=== PATIENT | female | born 1970 | race Caucasian/White ===

== ENCOUNTER → 2017-08-20 | Outpatient (CLI) | payer MEDICARE ==
--- NOTE | 2017-08-21 10:39 | MM ---
Reason for exam: screening (asymptomatic). Last mammogram was performed 1 year and 2 months ago. History: Family history of breast cancer in mother at age 76. Taking hormonal contraceptives for 5 years. Physical Findings: A clinical breast exam by your physician is recommended on an annual basis and results should be correlated with mammographic findings. MG 3D Screening Mammo W/Cad Bilateral CC and MLO view(s) were taken. Prior study comparison: July 04, 2016, bilateral MG screening mammo w CAD. June 30, 2015, bilateral MG screening mammo w CAD. June 21, 2014, bilateral MG screening mammo w CAD. The breast tissue is heterogeneously dense. This may lower the sensitivity of mammography. There is no discrete abnormality. ASSESSMENT: Benign, BI-RAD 2 RECOMMENDATION: Routine screening mammogram of both breasts in 1 year.
== END | disposition home or self-care (01) ==
LOC: RADMAMWWP 10:36
PROVIDERS: ATTEND Obstetrics & Gynecology
DX: Z12.31 Encounter for screening mammogram for malignant neoplasm of breast (principal)
CPT/HCPCS: 77063; 77067

== ENCOUNTER → 2018-01-13 | Outpatient (CLI) | payer MEDICARE ==
--- NOTE | 2018-01-14 08:06 | US ---
EXAMINATION TYPE: US carotid duplex BILAT DATE OF EXAM: 01/13/2018 COMPARISON: US 04/27/2016 CLINICAL HISTORY: H53.459 Loss of peripheral vision. EXAM MEASUREMENTS: RIGHT: Peak Systolic Velocity (PSV) cm/sec ----- Right CCA: 90.4 ----- Right ICA: 82.9 ----- Right ECA: 105.7 ICA/CCA ratio: 0.9 RIGHT: End Diastole cm/sec ----- Right CCA: 21.0 ----- Right ICA: 23.5 ----- Right ECA: 11.0 LEFT: Peak Systolic Velocity (PSV) cm/sec ----- Left CCA: 93.5 ----- Left ICA: 92.0 ----- Left ECA: 107.7 ICA/CCA ratio: 1.0 LEFT: End Diastole cm/sec ----- Left CCA: 20.0 ----- Left ICA: 39.1 ----- Left ECA: 17.0 VERTEBRALS (direction of flow): Right Vertebral: Antegrade Left Vertebral: Antegrade Rhythm: Normal Minimal amount of plaque visualized bilaterally. No elevated velocities. No significant stenosis. IMPRESSION: 1. No evidence of significant hemodynamic stenosis by carotid ultrasound. 2. Minimal plaque bilaterally. Criteria for Assigning % of Stenosis / Diameter reduction (Estimation based on the indirect measurements of the internal carotid artery velocities (ICA PSV). 1. Normal (no stenosis)=ICA PSV < 125 cm/s: ratio < 2.0: ICA EDV<40 cm/s. 2. Less than 50% stenosis=ICA PSV < 125 cm/s: ratio < 2.0: ICA EDV<40 cm/s. 3. 50 to 69% stenosis=ICA PSV of 125 to 230 cm/s: ration 2.0 ? 4.0: ICA EDV 40-100 cm/s. 4. Greater than 70% stenosis to near occlusion= ICA PSV > 230 cm/s: ratio > 4.0: ICA EDV > 100 cm/s. 5. Near occlusion= ICA PSV velocities may be low or undetectable: variable ratio and ICA EDV. 6. Total occlusion=unable to detect flow.
--- NOTE | 2018-01-15 11:24 | CT ---
EXAMINATION TYPE: CT brain wo/w con DATE OF EXAM: 01/13/2018 COMPARISON: NONE HISTORY: Loss of peripheral vision x 6-[address] DLP: 1949.1mGycm CONTRAST: CT scan of the head is performed without and with IV Contrast, patient injected with 100 mL of Isovue M300. Unenhanced followed by contrast enhanced CT of the brain is submitted for evaluation. The ventricles are midline. There is no evidence for intracranial hemorrhage or extra-axial collection. No mass e ffects are identified. Visualized bony calvarium is intact. Contrast is administered and no enhanci ng lesions are detected. No pathologic enhancement is identified. If symptoms persist consider MRI. Near-complete opacification left maxillary sinus. IMPRESSION: No acute intracranial process or enhancing lesion. If symptoms persist consider MRI.
== END | disposition home or self-care (01) ==
LOC: RADUSMAIN 15:39
PROVIDERS: ATTEND Psychiatry & Neurology Neurology
DX: H53.459 Other localized visual field defect, unspecified eye (principal)
CPT/HCPCS: 93880; 70470; Q9967

== ENCOUNTER → 2018-01-29 | Outpatient (CLI) | payer MEDICARE | END | disposition home or self-care (01) | LOC: LABWHC1 12:46 | PROVIDERS: ATTEND Ophthalmology Retina Specialist | DX: H20.9 Unspecified iridocyclitis (principal); Z53.9 Procedure and treatment not carried out, unspecified reason ==

== ENCOUNTER → 2018-10-24 | Outpatient (CLI) | payer MEDICARE ==
--- NOTE | 2018-10-24 15:40 | NM ---
EXAMINATION TYPE: NM DatScan Brain SPECT DATE OF EXAM: 10/24/2018 COMPARISON: 06/13/2017 HISTORY: Tremors and vision loss TECHNIQUE: 10 drops of Lugol's solution was administered 1 hour prior to injection as a thyroid bloc jj agent. After the administration of 4.35 mCi I-123 Ioflupane DaTscan. Images obtained 3 hours p ost injection. SPECT images of the brain were acquired with axial and coronal reconstructions. FINDINGS: The axial SPECT images demonstrate normal background activity. Accounting for head tilt, t here appears to be symmetric shaped comma-shaped appearance of the bilateral corpus striatum. IMPRESSION: No abnormality identified..
== END ==
LOC: RADNMMAIN 10:40
PROVIDERS: ATTEND Psychiatry & Neurology Neurology
DX: G25.0 Essential tremor (principal)
CPT/HCPCS: 78607; A9584

== ENCOUNTER 2019-01-25 23:38 | Observation (INO) | payer MEDICARE ==
[2019-01-26] MEDS ORDERED: IPRATROPIUM-ALBUTEROL 3 ML NEB INHALATION STA ×2 (00:27→02:25)
[2019-01-26] MEDS ORDERED: methylPREDNISolone SOD SUCCI 125 MG/2 ML VIAL IM ONE (00:27)
--- NOTE | 2019-01-26 00:32 | XR ---
EXAM: XR Chest, 2 Views CLINICAL HISTORY: ITS.REASON XR Reason: Pain TECHNIQUE: Frontal and lateral views of the chest. COMPARISON: No relevant prior studies available. FINDINGS: Lungs: Unremarkable. The lungs are clear. Pleural space: Unremarkable. No pneumothorax. Heart: Unremarkable. No cardiomegaly. Mediastinum: Unremarkable. Bones/joints: Unremarkable. Tubes, lines and devices: Presumed spinal cord and vagal stimulator devices. IMPRESSION: No acute findings.
[2019-01-26] MEDS ORDERED: ALBUTEROL NEBULIZED (CONC) 5 MG, SODIUM CHLORIDE 0.9% NEBULIZ 3 ML INHALATION STA ×2 (01:26)
--- NOTE | 2019-01-26 01:38 | ED ---
URI HPI - General Source: patient Mode of arrival: wheelchair Limitations: no limitations <Inga Ledbetter - Last Filed: 01/26/19 04:01> <Kerry Westbrook P - Last Filed: 02/02/19 03:27> - General Chief Complaint: Upper Respiratory Infection Stated Complaint: DORA Time Seen by Provider: 01/25/19 23:57 - History of Present Illness Initial Comments: 48-year-old female to history of asthma presenting today for chief complaint of cough congestion and sinus pressure for the past 2 days. Patient states she has had sinus pressure that increases with downward had movements. She denies any headache or neck stiffness. She states that she also has history of asthma has noticed wheezing and increasing short of breath and feels similar to which the previous asthma exacerbations. Patient states she did perform an albuterol treatment prior to her presentation in the emergency department. She states she did not have very much improvement. Patient denies any leg swelling chest pain hemoptysis. Patient denies any sputum production. Patient states she has had chills but has not recorded a fever at home. Remaining review of systems negative upon arrival patient appears well no signs of acute distress. Afebri le. (Inga Ledbetter) - Related Data Allergies Allergy/AdvReac Type Severity Reaction Status Date / Time Iodinated Contrast- Oral and Allergy Rash/Hives Verified 01/26/19 07:20 IV Dye peanut Allergy Unknown Verified 01/26/19 07:20 soy Allergy Rash/Hives Verified 01/26/19 07:20 Review of Systems ROS Other: All systems not noted in ROS Statement are negative. <Inga Ledbetter - Last Filed: 01/26/19 04:01> ROS Other: All systems not noted in ROS Statement are negative. <Kerry Westbrook - Last Filed: 02/02/19 03:27> ROS Statement: Those systems with pertinent positive or pertinent negative responses have been documented in the HPI. Past Medical History Additional Past Medical History / Comment(s): glaucoma, RP History of Any Multi-Drug Resistant Organisms: None Reported Past Surgical History: Orthopedic Surgery Additional Past Surgical History / Comment(s): neuro stimulator, knee replacement Past Psychological History: Depression Smoking Status: Never smoker Past Alcohol Use History: Rare Past Drug Use History: None Reported <Inga Ledbetter - Last Filed: 01/26/19 04:01> General Exam Limitations: no limitations <Inga Ledbetter Robert - Last Filed: 01/26/19 04:01> - General Exam Comments Initial Comments: General: The patient is awake and alert, in no distress, and does not appear acutely ill. Eye: +3 mm pupils are equal, round and reactive to light, extra-ocular movements are intact. No nystagmus. There is normal conjunctiva bilaterally. No signs of icterus. No photophobia Ears, nose, mouth and throat: There are moist mucous membranes and no oral lesions. Oropharynx was not erythematous there is no tonsillar enlargement exudates or lesions. Uvula midline. Tympanic membranes are not erythematous or is no effusions bulging or retraction. No tenderness to palpation of the mastoid. No anterior cervical lymphadenopathy. Rhinorrhea, clear and bilateral nares. No tripoding, no drooling. Neck: The neck is supple, there is no tenderness or JVD. No nuchal rigidity negative Brudzinski and Kernig Cardiovascular: There is a regular rate and rhythm. No murmur, rub or gallop is appreciated. Respiratory: Lungs sounds are diminished, there is expiratory wheeze. Respirations are non-labored, breath sounds are equal. No stridor, rales, or rhonchi. No retractions or abdominal breathing. Gastrointestinal: Soft, non-distended, non-tender abdomen without masses or organomegaly noted. There is no rebound or guarding present. Bowel sounds are unremarkable. Musculoskeletal: Normal ROM, no tenderness. Strength 5/5. Sensation intact. Radial pulses equal bilaterally 2+. Neurological: A&O x 3. CN II-XII intact, There are no obvious motor or sensory deficits. Coordination appears grossly intact. Speech appears normal, no muffling. Skin: Skin is warm and dry and no rashes or lesions are noted. No extremity edema Psychiatric: Cooperative (Inga Ledbetter) Course <EduardoInga crisostomo - Last Filed: 01/26/19 04:01> Vital Signs 01/25/19 01/26/19 01/26/19 23:41 00:09 00:35 Temperature 98.4 F Pulse Rate 96 95 Respiratory 20 20 Rate Blood Pressure 137/85 O2 Sat by Pulse 95 Oximetry 01/26/19 01/26/19 01/26/19 00:43 01:57 02:07 Temperature Pulse Rate 88 83 87 Respiratory Rate Blood Pressure O2 Sat by Pulse Oximetry 01/26/19 01/26/19 01/26/19 02:56 03:11 03:27 Temperature Pulse Rate 84 88 86 Respiratory 18 Rate Blood Pressure 130/92 O2 Sat by Pulse 98 Oximetry - Reevaluation(s) Reevaluation #1: Upon reevaluation patient states she had improvement after 1 DuoNeb treatment. Examination revealed continued to wheeze however improvement in air movement. 01/26/19 01:38 (Inga Ledbetter) Reevaluation #2: Patient was reevaluated after 2 additional nebulized treatments, minimal improvement, patient given 1g Magnesium. Will admit at this time for asthma exacerbation 01/26/19 04:01 (Inga Ledbetter) Medical Decision Making - Lab Data Result diagrams: 01/26/19 03:01 01/26/19 03:01 <Inga Ledbetter - Last Filed: 01/26/19 04:01> - Lab Data Result diagrams: 01/27/19 07:26 01/27/19 07:26 <Kerry Westbrook - Last Filed: 02/02/19 03:27> - Medical Decision Making 48-year-old female presenting today for chief complaint of congestion and cough sinus pressure and shortness of breath. Patient has history of asthma. Significant diminishment of lung sounds as well as extra wheeze. Patient is able to speak complete sentences was oxygenating at 95% on room air upon arrival. Patient was abdominal breathing, no retractions or significant tachypnea. Patient had 1 treatment prior to arrival in the ED. & a total of 3 treatments in the ER with minimal improvement. Given magnesium. Patient was evaluated by attending provider in the ER. Patient CXR WNL. Patient has tenderness to palpation of the maxillary sinuses. Given Augmentin. Patient will be admitted for breathing treatments, IV steroids. Total of 30 minutes of critical care was spent on patient. Dr. Westbrook is agreeable with admission. Patient is agreeable with admission. Patient transferred to floor in stable condition. (Inga Ledbetter) I was available for consultation in the emergency department. The history and physical exam were done by the midlevel provider. I was consulted for this patient's care. I reviewed the case with the midlevel provider and based on their presentation of the patient, I agree with the assessment, medical decision making and plan of care as documented. Chart was dictated using [employer] dictation software. Attempts were made to correct any dictation errors however some typographical errors may persist. (Kerry Westbrook) - Lab Data Lab Results 01/26/19 01/26/19 Range/Units 03:01 03:01 WBC 13.4 H (3.8-10.6) k/uL RBC 4.48 (3.80-5.40) m/uL Hgb 14.4 (11.4-16.0) gm/dL Hct 43.2 (34.0-46.0) % MCV 96.3 (80.0-100.0) fL MCH 32.1 (25.0-35.0) pg MCHC 33.3 (31.0-37.0) g/dL RDW 15.1 (11.5-15.5) % Plt Count 267 (150-450) k/uL Neutrophils % 94 % Lymphocytes % 3 % Monocytes % 2 % Eosinophils % 1 % Basophils % 0 % Neutrophils # 12.5 H (1.3-7.7) k/uL Lymphocytes # 0.4 L (1.0-4.8) k/uL Monocytes # 0.2 (0-1.0) k/uL Eosinophils # 0.2 (0-0.7) k/uL Basophils # 0.0 (0-0.2) k/uL Sodium 140 (137-145) mmol/L Potassium 4.3 (3.5-5.1) mmol/L Chloride 108 H (98-107) mmol/L Carbon Dioxide 21 L (22-30) mmol/L Anion Gap 11 mmol/L BUN 9 (7-17) mg/dL Creatinine 0.66 (0.52-1.04) mg/dL Est GFR (CKD-EPI)AfAm >90 (>60 ml/min/1.73 sqM) Est GFR (CKD-EPI)NonAf >90 (>60 ml/min/1.73 sqM) Glucose 145 H (74-99) mg/dL Calcium 9.7 (8.4-10.2) mg/dL Total Bilirubin 0.6 (0.2-1.3) mg/dL AST 18 (14-36) U/L ALT 10 (9-52) U/L Alkaline Phosphatase 71 (38-126) U/L Total Protein 8.0 (6.3-8.2) g/dL Albumin 4.8 (3.5-5.0) g/dL Critical Care Time Critical Care Time: Yes Total Critical Care Time: 30 <Kerry Westbrook - Last Filed: 02/02/19 03:27> Disposition Is patient prescribed a controlled substance at d/c from ED?: No Time of Disposition: 03:57 Decision to Admit Reason: Admit from EC Decision Date: 01/26/19 Decision Time: 03:57 <Inga Ledbetter - Last Filed: 01/26/19 04:01> <Kerry Westbrook - Last Filed: 02/02/19 03:27> Clinical Impression: Shortness of breath, Sinus pressure, Asthma exacerbation Disposition: ADMITTED IP TO THIS HOSP Condition: Serious
[2019-01-26] MEDS ORDERED: ALBUTEROL NEBULIZED 2.5 MG/3 ML INHALATION STA (01:46)
[2019-01-26] MEDS ORDERED: MAGNESIUM SULFATE-D5W PMX 1 GM in DEXTROSE/WATER 1 100ML.BAG IVPB ONE (02:26)
[2019-01-26 03:25] LABS: Basophils % (A) 0 %; Eosinophils # (A) 0.2 k/uL (0-0.7); Eosinophils % (A) 1 %; HCT 43.2 % (34.0-46.0); HGB 14.4 gm/dL (11.4-16.0); Lymphocytes # (A) 0.4 k/uL (1.0-4.8); Lymphocytes % (A) 3 %; MCH 32.1 pg (25.0-35.0); MCHC 33.3 g/dL (31.0-37.0); MCV 96.3 fL (80.0-100.0); Monocytes # (A) 0.2 k/uL (0-1.0); Monocytes % (A) 2 %; Neutrophils # (A) 12.5 k/uL (1.3-7.7); Neutrophils % (A) 94 %; Platelet Count 267 k/uL (150-450); RBC 4.48 m/uL (3.80-5.40); RDW 15.1 % (11.5-15.5); WBC 13.4 k/uL (3.8-10.6)
[2019-01-26] MEDS ORDERED: AMOXIC-POT CLAV 875-125MG 1 EACH TAB PO STA (03:32)
[2019-01-26] MEDS ORDERED: cefTRIAXone IN SWFI 1,000 MG/10 ML SYRINGE IVP STA (03:32)
[2019-01-26 03:39] LABS: ALT 10 U/L (9-52); AST 18 U/L (14-36); African American GFR (CKD) >90 (>60 ml/min/1.73 sqM); Albumin 4.8 g/dL (3.5-5.0); Alkaline Phosphatase 71 U/L (38-126); Anion Gap 11 mmol/L; Blood Urea Nitrogen 9 mg/dL (7-17); Calcium 9.7 mg/dL (8.4-10.2); Carbon Dioxide 21 mmol/L (22-30); Chloride 108 mmol/L (98-107); Glucose 145 mg/dL (74-99); Potassium 4.3 mmol/L (3.5-5.1); Sodium 140 mmol/L (137-145); Total Bilirubin 0.6 mg/dL (0.2-1.3)
[2019-01-26] MEDS ORDERED: IPRATROPIUM-ALBUTEROL 3 ML NEB INHALATION PRN (03:58)
[2019-01-26 05:10] VITALS: BMI 41.5
[2019-01-26] MEDS ORDERED: predniSONE 20 MG TAB PO SCH (09:00)
[2019-01-26] MEDS: IPRATROPIUM-ALBUTEROL 3 ML NEB INHALATION SCH ×4 (09:11→20:39)
[2019-01-26] MEDS: guaiFENesin 600 MG TABLET.ER PO SCH ×2 (09:54→21:20)
[2019-01-26] MEDS ORDERED: TEMAZEPAM 15 MG CAP PO PRN (14:59)
[2019-01-26] MEDS ORDERED: AZITHROMYCIN 500 MG in SODIUM CHLORIDE 0.9% 250 ML IVPB SCH (16:00)
[2019-01-26] MEDS: DULoxetine HCL 60 MG CAPSULE.DR PO SCH (17:16)
[2019-01-26] MEDS: clonazePAM 0.5 MG TAB PO SCH ×2 (17:16→21:20)
[2019-01-26] MEDS: ARIPiprazole 10 MG TAB PO SCH (17:16)
[2019-01-26] MEDS: methylPREDNISolone SOD SUCCI 125 MG/2 ML VIAL IV SCH (17:16)
[2019-01-26] MEDS: HEPARIN SODIUM,PORCINE 5,000 UNIT/ML 1 ML VIAL SQ SCH (17:17)
[2019-01-26 17:18] LABS: Glucose,Whole Blood 119 mg/dL (75-99)
--- NOTE | 2019-01-26 17:40 | HP ---
HISTORY AND PHYSICAL CHIEF COMPLAINT: Shortness of breath. HISTORY OF PRESENT ILLNESS: This 48-year-old woman with a past medical history of multiple medical problems, including asthma, fibromyalgia, history of sleep apnea, history of glaucoma, history of bulging and herniated discs, history of anxiety, depression, being followed by Dr. Melly Peña in the outpatient setting, was living in [place]. The patient has respiratory difficulties. because of increased shortness of breath and cough and sputum, patient came to [facility] for further evaluation and treatment. There is no history of any fever, rigor or chills. No history of headache, loss of consciousness, seizures at this time. PAST MEDICAL HISTORY: 1. Asthma. 2. Fibromyalgia. 3. Sleep apnea. 4. History of glaucoma. 5. History of bulging discs. HOME MEDICATIONS: 1. Spiriva 1 puff daily. 2. Topamax 100 mg p.o. daily. 3. Inderal XL 80 mg p.o. daily. 4. Methotrexate 25 mg . 5. Xalatan 0.005% one drop both eyes at bedtime. 6. Klonopin 0.5 mg t.i.d. 7. Cymbalta 60 mg daily. 8. Abilify 10 mg daily. ALLERGIES: 1. IODINATED CONTRAST. 2. PEANUT. 3. SOY. FAMILY HISTORY: No history of heart disease or strokes in the family. SOCIAL HISTORY: No history of smoking. No history of alcohol intake. REVIEW OF SYSTEMS: ENT: No diminished hearing. No diminished vision. CARDIOVASCULAR SYSTEM: As mentioned earlier. RESPIRATORY SYSTEM: As mentioned earlier. GI: No nausea, vomiting, diarrhea. : No dysuria or retention. NERVOUS SYSTEM: No numbness, weakness. ALLERGY/IMMUNOLOGY: No asthma, hayfever. MUSCULOSKELETAL: As mentioned earlier. HEMATOLOGY/ONCOLOGY: No history of anemia. ENDOCRINE: No history of diabetes, hypothyroidism. CONSTITUTIONAL: As mentioned earlier. DERMATOLOGY: Negative. RHEUMATOLOGY: Negative. PSYCHIATRY: As mentioned earlier. PHYSICAL EXAMINATION: Patient is alert and oriented x3. Pulse 79, blood pressure 123/83, respiration 15, temperature 98.5, pulse ox 97% on room air. HEENT: Conjunctivae normal. Oral mucosa moist. NECK: No jugular venous distention. No carotid bruit. No lymph node enlargement. CARDIOVASCULAR SYSTEM: S1, S2 muffled. RESPIRATORY SYSTEM: Breath sounds diminished at the bases. A few scattered rhonchi and crackles. Expiratory wheezing also present. ABDOMEN: Soft, non-tender. No mass palpable. LEGS: No edema. No swelling. NERVOUS SYSTEM: Higher functions as mentioned earlier. Moves all 4 limbs. No focal motor or sensory deficit. LYMPHATICS: No lymph node palpable in neck, axillae or groin. SKIN: No ulcer, rash, bleeding. JOINTS: No active deforming arthropathy. LABS: WBC 13.4, hemoglobin is 14.4. ASSESSMENT: 1. Bronchial asthma, acute exacerbation, with acute purulent tracheobronchitis. 2. Increased white count. 4. Asthma. 5. Fibromyalgia. 6. Sleep apnea. 7. Glaucoma. 8. History of degenerative joint disease. 9. History of anxiety, depression. 10.History of nerve stimulator. 11.History of knee replacements. RECOMMENDATIONS AND DISCUSSION: In this 48-year-old woman who presented with multiple medical issues, at this time we will monitor the patient closely, continue the current medications, continue with symptomatic treatment. I would also recommend intensive bronchodilators, steroids and empiric antibiotics. Pulmonary consultation. The patient also had some minimal wide- complex QRS complexes in the EKG. I would recommend EKG and a set of troponins as well. Prognosis is guarded because of multiple complex medical issues. Further recommendations to follow. A copy of this dictation is being forwarded to Dr. Peña, who is the primary physician. A recent SPECT MRI did not show any acute abnormality. MMODL / WAIN: [id number] / SORAYA
[2019-01-26] MEDS: INSULIN ASPART (NovoLOG) 100 UNIT/ML VIAL SQ SCH ×2 (17:44→21:20)
--- NOTE | 2019-01-26 18:05 | P.CNPUL ---
History of Present Illness Consult date: 01/26/19 Requesting physician: Leonela Soliz Reason for consult: asthma Chief complaint: shortness of breath cough wheezing History of present illness: this is a 48-year-old female with history of asthma since she was a child. Patient presented to the ER with 2 days history of sinuses congestion, went on to develop cough wheezing and shortness of breath for the last 24 hours. Patient denies any fever or chills, denies any hemoptysis, denies any chest pain. Apparently when she was seen in the ER her physical findings were quite significant, patient was not improving with bronchodilators, hence patient was admitted, placed on antibiotics, steroids, and I was asked to see her on consultation. During my evaluation, the patient was already feeling a bit better, less cough and less wheezing less shortness of breath, and she had no pressure or fullness over her sinuses during my examination. Patient is a nonsmoker, she is known to have history of asthma but usually her asthma is fairly well controlled uses only albuterol as needed. Patient is also known to have history of multiple ALLERGIES including ALLERGY to IV dye, peanuts, and soy. Review of Systems ONSTITUTIONAL: No fever, no malaise, no fatigue. HEENT: No recent visual problems or hearing problems. Denied any sore throat. known to have history of retinitis pigmentosa CARDIOVASCULAR: No orthopnea, PND, no palpitations, no syncope. PULMONARY: as noted in HPI, cough wheezing and shortness of breath and pressure and fullness over her sinuses. GASTROINTESTINAL: No diarrhea, no nausea, no vomiting, no abdominal pain. Normoactive bowel sounds. NEUROLOGICAL: No headaches, no weakness, no numbness. . HEMATOLOGICAL: Denies any bleeding or petechiae. GENITOURINARY: Denies any burning micturition, frequency, or urgency. r MUSCULOSKELETAL/RHEUMATOLOGICAL: Denies any joint pain, swelling, or any muscle pain. ENDOCRINE: Denies any polyuria or polydipsia. Past Medical History Past Medical History: Asthma, Fibromyalgia, Sleep Apnea/CPAP/BIPAP Additional Past Medical History / Comment(s): glaucoma, RP, bulging and herniated discs History of Any Multi-Drug Resistant Organisms: None Reported Past Surgical History: Orthopedic Surgery Additional Past Surgical History / Comment(s): neuro stimulator, knee replacement Past Psychological History: Anxiety, Depression Smoking Status: Never smoker Past Alcohol Use History: Rare Past Drug Use History: None Reported Medications and Allergies Home Medications Medication Instructions Recorded Confirmed Type ARIPiprazole [Abilify] 10 mg PO DAILY 01/26/19 01/26/19 History DULoxetine HCL [Cymbalta] 60 mg PO DAILY 01/26/19 01/26/19 History Latanoprost [Xalatan 0.005%] 1 drop BOTH EYES HS 01/26/19 01/26/19 History Methotrexate Sodium [Methotrexate] 25 mg PO TH 01/26/19 01/26/19 History Propranolol HCl [Inderal Xl] 80 mg PO DAILY 01/26/19 01/26/19 History Topiramate [Topamax] 100 mg PO DAILY 01/26/19 01/26/19 History Trospium Chloride 20 mg PO DAILY 01/26/19 01/26/19 History clonazePAM [KlonoPIN] 0.5 mg PO TID 01/26/19 01/26/19 History Allergies Allergy/AdvReac Type Severity Reaction Status Date / Time Iodinated Contrast- Oral and Allergy Rash/Hives Verified 01/26/19 07:20 IV Dye peanut Allergy Unknown Verified 01/26/19 07:20 soy Allergy Rash/Hives Verified 01/26/19 07:20 Physical Exam Vitals: Vital Signs Temp Pulse Pulse Resp BP BP Pulse Ox 01/26/19 16:12 76 01/26/19 15:59 74 01/26/19 15:17 15 01/26/19 15:00 98.9 F 74 15 104/68 97 01/26/19 12:20 78 01/26/19 12:10 79 01/26/19 09:22 85 01/26/19 09:12 79 97 01/26/19 07:00 98.5 F 86 15 123/83 97 01/26/19 04:59 98.2 F 78 16 122/80 98 01/26/19 03:27 86 18 130/92 98 01/26/19 03:11 88 01/26/19 02:56 84 01/26/19 02:07 87 01/26/19 01:57 83 01/26/19 00:43 88 01/26/19 00:35 95 01/26/19 00:09 20 01/25/19 23:41 98.4 F 96 20 137/85 95 Intake and Output 01/26/19 01/26/19 01/26/19 06:59 14:59 22:59 Other: # Voids 1 2 Weight 99.79 kg Physical Exam: Revealed 48-year-old female in no distress. Head: Atraumatic normocephalic. HEENT:[Neck is supple.] [No neck masses.] [No thyromegaly.] [No JVD.] Chest: [wheezing bilaterally more so on forced expiratory maneuver..] Cardiac Exam: [Normal S1 and S2, no S3 gallop, no murmur.] Abdomen: [Soft, nontender, no megaly, no rebound, no guarding, normal bowel sounds.] Extremities: [No clubbing, no edema, no cyanosis.] Neurological Exam: [No focal neurologic deficit.] skin: No rashes. Lymphatics: No lymphadenopathy. Psychiatric: Normal mood affect and mental status examination Results - Laboratory Findings CBC and BMP: 01/26/19 03:01 01/26/19 03:01 Abnormal lab findings: Abnormal Labs 01/26/19 01/26/19 01/26/19 03:01 03:01 17:17 WBC 13.4 H Neutrophils # 12.5 H Lymphocytes # 0.4 L Chloride 108 H Carbon Dioxide 21 L Glucose 145 H POC Glucose (mg/dL) 119 H - Diagnostic Findings Chest x-ray: image reviewed (no evidence of active disease) Assessment and Plan Assessment: impression: Acute exacerbation of bronchial asthma Acute maxillary sinusitis Acute upper respirator tract infection History of retinitis pigmentosa. Recommendation: Continue present treatment plan including present bronchodilators/DuoNeb, methylprednisolone, Rocephin,Pulmicort updrafts, patient will likely be much better in the next 24-48 hours, and consider discharge planning once the patient is significantly improved. We'll continue to follow. Time with Patient: Greater than 30
[2019-01-26] MEDS: BUDESONIDE 1 MG/2 ML NEBU INHALATION SCH (20:39)
[2019-01-26] MEDS: FORMOTEROL FUMARATE 20 MCG/2 ML NEBU INHALATION SCH (20:39)
[2019-01-26 20:49] LABS: Glucose,Whole Blood 180 mg/dL (75-99)
[2019-01-26] MEDS ORDERED: LATANOPROST 0.005% OPHTH DROPS 2.5 ML BTL BOTH EYES SCH (21:00)
[2019-01-27] MEDS: methylPREDNISolone SOD SUCCI 125 MG/2 ML VIAL IV SCH ×3 (00:01→15:09)
[2019-01-27 01:33] VITALS: RESP 15
[2019-01-27 06:52] LABS: Glucose,Whole Blood 126 mg/dL (75-99)
[2019-01-27] MEDS: INSULIN ASPART (NovoLOG) 100 UNIT/ML VIAL SQ SCH ×2 (07:22→14:31)
[2019-01-27 08:30] LABS: Basophils % (A) 0 %; Eosinophils % (A) 0 %; HCT 39.9 % (34.0-46.0); HGB 13.2 gm/dL (11.4-16.0); Lymphocytes # (A) 0.8 k/uL (1.0-4.8); Lymphocytes % (A) 6 %; MCH 32.1 pg (25.0-35.0); MCHC 33.1 g/dL (31.0-37.0); MCV 96.9 fL (80.0-100.0); Mean Platelet Volume 7.4; Monocytes # (A) 0.2 k/uL (0-1.0); Monocytes % (A) 2 %; Neutrophils # (A) 11.3 k/uL (1.3-7.7); Neutrophils % (A) 92 %; Platelet Count 293 k/uL (150-450); RBC 4.12 m/uL (3.80-5.40); RDW 15.2 % (11.5-15.5); WBC 12.3 k/uL (3.8-10.6)
[2019-01-27 08:32] LABS: African American GFR (CKD) >90 (>60 ml/min/1.73 sqM); Anion Gap 9 mmol/L; Blood Urea Nitrogen 14 mg/dL (7-17); Calcium 9.3 mg/dL (8.4-10.2); Carbon Dioxide 21 mmol/L (22-30); Chloride 112 mmol/L (98-107); Glucose 123 mg/dL (74-99); Potassium 4.2 mmol/L (3.5-5.1); Sodium 142 mmol/L (137-145)
[2019-01-27] MEDS: IPRATROPIUM-ALBUTEROL 3 ML NEB INHALATION SCH ×3 (08:50→15:33)
[2019-01-27] MEDS: FORMOTEROL FUMARATE 20 MCG/2 ML NEBU INHALATION SCH (08:50)
[2019-01-27] MEDS: BUDESONIDE 1 MG/2 ML NEBU INHALATION SCH (08:50)
[2019-01-27] MEDS ORDERED: PANTOPRAZOLE 40 MG/10 ML VIAL IVP SCH (09:00)
[2019-01-27] MEDS ORDERED: PROPRANOLOL LA 80 MG CAP.SA.24H PO SCH (09:00)
[2019-01-27] MEDS ORDERED: TOPIRAMATE 100 MG TAB PO SCH (09:00)
[2019-01-27] MEDS: ARIPiprazole 10 MG TAB PO SCH (09:45)
[2019-01-27] MEDS: clonazePAM 0.5 MG TAB PO SCH (09:45)
[2019-01-27] MEDS: guaiFENesin 600 MG TABLET.ER PO SCH (09:45)
[2019-01-27] MEDS: DULoxetine HCL 60 MG CAPSULE.DR PO SCH (09:45)
[2019-01-27] MEDS: HEPARIN SODIUM,PORCINE 5,000 UNIT/ML 1 ML VIAL SQ SCH (09:46)
[2019-01-27 11:23] LABS: Glucose,Whole Blood 130 mg/dL (75-99)
--- NOTE | 2019-01-27 13:26 | P.PN ---
Subjective Progress Note Date: 01/27/19 Principal diagnosis: Acute exacerbation of mild intermittent asthma this is a 48-year-old female with history of asthma since she was a child. Patient presented to the ER with 2 days history of sinuses congestion, went on to develop cough wheezing and shortness of breath for the last 24 hours. Patient denies any fever or chills, denies any hemoptysis, denies any chest pain. Apparently when she was seen in the ER her physical findings were quite significant, patient was not improving with bronchodilators, hence patient was admitted, placed on antibiotics, steroids, and I was asked to see her on consultation. During my evaluation, the patient was already feeling a bit b malik, less cough and less wheezing less shortness of breath, and she had no pressure or fullness over her sinuses during my examination. Patient is a nonsmoker, she is known to have history of asthma but usually her asthma is fairly well controlled uses only albuterol as needed. Patient is also known to have history of multiple ALLERGIES including ALLERGY to IV dye, peanuts, and soy. Reevaluated today on 01/27/2019, patient is feeling much better, hardly any wheezing, she does have some occasional cough. No fever no chills no hemoptysis no chest pain. Labs were reviewed including CBC and basic metabolic profile. Patient is doing great compared to how she felt yesterday. Hence I will r ecommend that the patient could be discharged home today on prednisone 30 mg tapered over 2 weeks, Ceftin 500 twice a day for 10 days, albuterol updrafts 4 times a day and when necessary, Symbicort 160/4.52 puffs twice a day, and Singulair 10 mg daily. Patient is to follow-up with me in one week post discharge. Objective - Vital Signs Vital signs: Vital Signs Temp 98.5 F 01/27/19 07:05 Pulse 71 01/27/19 12:54 Resp 15 01/27/19 07:05 BP 108/78 01/27/19 07:05 Pulse Ox 96 01/27/19 08:50 Intake & Output 01/26/19 01/27/19 01/27/19 18:59 06:59 18:59 Other: Voiding Method Toilet # Voids 2 2 - Exam Physical Exam: Revealed 48-year-old female in no distress. Head: Atraumatic normocephalic. HEENT:[Neck is supple.] [No neck masses.] [No thyromegaly.] [No JVD.] Chest: [Minimal wheezing on forced expiratory maneuver only. Cardiac Exam: [Normal S1 and S2, no S3 gallop, no murmur.] Abdomen: [Soft, nontender, no megaly, no rebound, no guarding, normal bowel sounds.] Extremities: [No clubbing, no edema, no cyanosis.] Neurological Exam: [No focal neurologic deficit.] skin: No rashes. Lymphatics: No lymphadenopathy. Psychiatric: Normal mood affect and mental status examination - Labs CBC & Chem 7: 01/27/19 07:26 01/27/19 07:26 Labs: Abnormal Lab Results - Last 24 Hours (Table) 01/26/19 01/26/19 01/27/19 Range/Units 17:17 20:45 06:50 WBC (3.8-10.6) k/uL Neutrophils # (1.3-7.7) k/uL Lymphocytes # (1.0-4.8) k/uL Chloride (98-107) mmol/L Carbon Dioxide (22-30) mmol/L Glucose (74-99) mg/dL POC Glucose (mg/dL) 119 H 180 H 126 H (75-99) mg/dL 01/27/19 01/27/19 01/27/19 Range/Units 07:26 07:26 11:21 WBC 12.3 H (3.8-10.6) k/uL Neutrophils # 11.3 H (1.3-7.7) k/uL Lymphocytes # 0.8 L (1.0-4.8) k/uL Chloride 112 H (98-107) mmol/L Carbon Dioxide 21 L (22-30) mmol/L Glucose 123 H (74-99) mg/dL POC Glucose (mg/dL) 130 H (75-99) mg/dL Assessment and Plan Assessment: impression: Acute exacerbation of bronchial asthma Acute maxillary sinusitis Acute upper respirator tract infection History of retinitis pigmentosa. Recommendation: Suggest discharging the patient home today on prednisone 30 mg tapered over the next 2 weeks, Symbicort 160/4.52 puffs twice a day, Ceftin 500 twice a day for 10 days, Singulair 10 mg daily at bedtime, patient will come back and see me in the office on outpatient basis hopefully in the next 7-10 days. Time with Patient: Less than 30
[2019-01-27] MEDS ORDERED: predniSONE 10 MG TAB PO SCH (13:30)
[2019-01-27 15:16] VITALS: BP 115/74; TEMP 98.2
[2019-01-27 15:35] VITALS: PULSE 72
--- NOTE | 2019-01-28 06:37 | DS ---
DISCHARGE SUMMARY FINAL DIAGNOSES: 1. Bronchial asthma acute exacerbation with acute purulent tracheobronchitis. 2. Increased WBC. 3. Asthma. 4. Fibromyalgia. 5. Sleep apnea. 6. Glaucoma. 7. History of degenerative joint disease. 8. History of anxiety, depression. 9. History of nerve stimulator. 10.History of knee replacement. DISCHARGE DISPOSITION: The patient will be discharged in stable condition with guarded prognosis. HISTORY OF PRESENT ILLNESS: This 48-year-old woman with a past medical history of multiple medical problems admitted with bronchial asthma, acute exacerbation, acute purulent tracheobronchitis. Patient treated with bronchodilators and IV steroids and antibiotics. Patient improved significantly. Dr. Boles saw the patient, recommended outpatient followup. On exam, vitals are stable. CARDIOVASCULAR: S1, S2 muffled. RESPIRATORY: A few scattered rhonchi and crackles. ABDOMEN: Soft. NERVOUS SYSTEM: No focal deficits. cleared the patient discharge. DISCHARGE ADVICE: 1. Diet is cardiac. 2. Activity limited until followup. 3. Follow up with Dr. Peña in 2 to 3 days. 4. Follow up with Pulmonary, Dr. Boles, as recommended. MEDICATIONS ARE: 1. Abilify 10 mg p.o. daily. 2. Cymbalta 60 mg p.o. daily. 3. Inderal XL 80 mg p.o. daily. 4. Klonopin 0.5 mg p.o. t.i.d. 5. Methotrexate 25 mg p.o. . 6. Topamax 100 mg p.o. daily. 7. Xalatan 1 drop both eyes q.h.s. 8. Ceftin 500 mg p.o. b.i.d. for 3 days. 9. Prednisone taper 40 mg daily for 3 days, 30 for 3 days, 20 for 3 days 10 for 3 days and stop. 10.Albuterol 2 puffs q.6. 11.Singulair 10 mg q.h.s. 12.Symbicort 160/4.5 two puffs b.i.d. Once again, the patient will be discharged in a stable condition with guarded prognosis. MMODL / IJN: [id number] / MTDD
[2019-01-28] MEDS ORDERED: PANTOPRAZOLE 40 MG TABLET PO SCH (07:30)
[2019-01-29] MEDS ORDERED: METHOTREXATE SODIUM 2.5 MG TAB PO SCH (09:00)
== END 2019-01-27 16:54 | disposition home or self-care (01) ==
LOC: EC 23:38 → 4SSUR 01-26 04:07
PROVIDERS: ADMIT Hospitalist; ATTEND Hospitalist
DX: J45.21 Mild intermittent asthma with (acute) exacerbation (principal); J20.9 Acute bronchitis, unspecified; J01.00 Acute maxillary sinusitis, unspecified; H40.9 Unspecified glaucoma; M19.90 Unspecified osteoarthritis, unspecified site; F32.9 Major depressive disorder, single episode, unspecified; F41.9 Anxiety disorder, unspecified; H35.52 Pigmentary retinal dystrophy; M79.7 Fibromyalgia; G47.30 Sleep apnea, unspecified; Z99.89 Dependence on other enabling machines and devices; Z79.899 Other long term (current) drug therapy; Z91.041 Radiographic dye allergy status; Z91.010 Allergy to peanuts; Z91.018 Allergy to other foods; Z87.39 Personal history of other diseases of the musculoskeletal system and connective tissue; Z96.659 Presence of unspecified artificial knee joint; Z96.9 Presence of functional implant, unspecified
CPT/HCPCS: 96376; 96365; 96372 ×3; 96375 ×3; 99285; 36415; 94640 ×4; 94760 ×2; 93005; 80053; 80048; 84484 ×2; 85025 ×2; 71046; G0378 ×2; J1644 ×2; J2930 ×2; J0696 ×2; J3475; J7512 ×2; C9113; 99284

== ENCOUNTER → 2019-01-30 | Outpatient (CLI) | payer MEDICARE ==
[2019-01-30 13:06] LABS: Basophils % (A) 0 %; Eosinophils # (A) 0.1 k/uL (0-0.7); Eosinophils % (A) 1 %; HCT 43.8 % (34.0-46.0); HGB 14.3 gm/dL (11.4-16.0); Lymphocytes # (A) 1.3 k/uL (1.0-4.8); Lymphocytes % (A) 14 %; MCH 31.3 pg (25.0-35.0); MCHC 32.6 g/dL (31.0-37.0); Mean Platelet Volume 6.9; Monocytes # (A) 0.1 k/uL (0-1.0); Monocytes % (A) 1 %; Neutrophils # (A) 7.8 k/uL (1.3-7.7); Neutrophils % (A) 84 %; Platelet Count 391 k/uL (150-450); RBC 4.56 m/uL (3.80-5.40); RDW 13.7 % (11.5-15.5); WBC 9.4 k/uL (3.8-10.6)
[2019-01-30 19:24] LABS: BUN/Creat Ratio 15.56 Ratio (12.00-20.00); Calcium 9.3 mg/dL (8.7-10.3); Potassium 4.1 mmol/L (3.5-5.5)
== END | disposition home or self-care (01) ==
LOC: LABWHC1 12:50
PROVIDERS: ATTEND Hospitalist
DX: J45.909 Unspecified asthma, uncomplicated (principal)
CPT/HCPCS: 36415; 80048; 85025

== ENCOUNTER → 2019-03-04 | Outpatient (CLI) | payer MEDICARE ==
--- NOTE | 2019-03-04 09:44 | CT ---
EXAMINATION TYPE: CT cervical spine wo con DATE OF EXAM: 03/04/2019 COMPARISON: None HISTORY: Cervicalgia CT DLP: 758.[address] of the cervical spine was performed with bone and soft tissue window settings submitted . Coronal and sagittal reconstruction is obtained. C2-3: Within normal limits C3-4: Mild degenerative disc space narrowing. Extensive streak artifact from neural transmitter resul ts in limited evaluation of this level. C4-5:Mild degenerative disc space narrowing. Extensive streak artifact from neural transmitter result s in limited evaluation of this level. 5-6: Moderate degenerative disc space narrowing. Ventral spondylosis. Mild posterior disc bulge witho ut herniation or central stenosis. No evidence for foraminal encroachment. C6-7: Moderate to severe degenerative disc space narrowing. Ventral spondylosis. Posterior disc bulge with mild effacement ventral thecal sac. No evidence for antral stenosis or foraminal encroachment. C7-T1: Within normal limits. IMPRESSION: 1. Degenerative disc space narrowing as discussed. 2. Neural transmitter is noted extending from the C2 level through C4 level resulting in extensive st reak artifact and exam limitation.
--- NOTE | 2019-03-04 13:20 | CT ---
EXAMINATION TYPE: CT lumbar spine wo con DATE OF EXAM: 03/04/2019 COMPARISON: None HISTORY: L-spine pain CT DLP: 1372.[address] of the lumbar spine was performed. Bone and soft tissue window settings are submitted as well as coronal and sagittal reconstructions. L1-L2: Normal disc space height. No disc herniation protrusion or central stenosis. No facet joint arthropathy. No evidence for foraminal encroachment. L2-L3: Normal disc space height. No disc herniation protrusion or central stenosis. No facet joint arthropathy. No evidence for foraminal encroachment. L3-L4: Normal disc space height. No disc herniation protrusion or central stenosis. No facet joint arthropathy. No evidence for foraminal encroachment. L4-L5: Mild degenerative disc place narrowing. Posterior disc bulge. No herniation or central stenos is. No foraminal encroachment. L5-S1: Normal disc space height. No disc herniation protrusion or central stenosis. No facet joint arthropathy. No evidence for foraminal encroachment. No paraspinal masses are identified. Lumbar segments are free if fracture. IMPRESSION: 1. Degenerative disc space narrowing and disc bulging at L4-5.
== END | disposition home or self-care (01) ==
LOC: RADCTMAIN 07:25
PROVIDERS: ATTEND Psychiatry & Neurology Neurology
DX: M99.73 Connective tissue and disc stenosis of intervertebral foramina of lumbar region (principal); M51.86 Other intervertebral disc disorders, lumbar region; M51.36 Other intervertebral disc degeneration, lumbar region; M99.71 Connective tissue and disc stenosis of intervertebral foramina of cervical region; M50.31 Other cervical disc degeneration, high cervical region; Z91.041 Radiographic dye allergy status; Z88.8 Allergy status to other drugs, medicaments and biological substances
CPT/HCPCS: 72125; 72131

== ENCOUNTER 2020-03-18 07:44 | Day surgery (SDC) | payer MEDICARE ==
[~2020-03-18 07:44] MED LIST: PREMYELOGRAM MEDICATION REVIEW 1 EACH MISC PO PRN
[2020-03-18] MEDS ORDERED: diazePAM 5 MG TAB PO STA (08:31)
[2020-03-18 08:53] VITALS: TEMP 98.7
[2020-03-18 09:40] VITALS: RESP 16
[2020-03-18] MEDS ORDERED: HYDROcodone/APAP 5-325MG 1 EACH TAB PO PRN (09:51)
--- NOTE | 2020-03-18 11:10 | CT ---
EXAMINATION TYPE: CT lumbar spine w con DATE OF EXAM: 03/18/2020 COMPARISON: CT lumbar spine March 04, 2019. MRI lumbar spine April 02, 2013. HISTORY: chronic back pain. CT DLP: 1358.2 mGycm Automated exposure control for dose reduction was used. CONTRAST: CT scan of the lumbar is performed after injection of intrathecal contrast, patient injected with 15 ml mL of Isovue M200. Enhanced CT of the lumbar spine was performed. Bone and soft tissue window settings are submitted as well as coronal and sagittal reconstructions. 5 lumbar type vertebra are redemonstrated. There is satisfactory alignment seen. Vertebral body heigh ts and disc space heights are maintained. No suspicious new posterior disc herniations are seen. Ther e is poor visualization of conus with poor separation of the ascending lumbosacral nerve fibers which are more clumped in appearance versus 2013 MRI. Axial images show mild facet degenerative changes bilaterally at L2-L3 and L3-L4 levels. Axial images at L4-L5 level show moderate facet degenerative changes bilaterally but spinal canal is preserved. Axial images at L5-S1 level show mild to moderate facet degenerative changes bilaterally. Neural foramina are patent bilaterally at all lumbar levels. There is anteverted uterus with central metallic IUD. Spinal canal is not effaced. Cholecystectomy cl ips are noted. Stimulator device in the left posterior soft tissue is noted. IMPRESSION: No obvious new significant disc herniation. Only suspicious finding is poor separation of the ascending lumbosacral nerve roots raising concern for underlying arachnoiditis. [facility] clinic [facility].
--- NOTE | 2020-03-18 11:28 | CT ---
EXAMINATION TYPE: CT cervical spine w con DATE OF EXAM: 03/18/2020 COMPARISON: CT cervical spine March 04, 2019. MRI cervical spine April 02, 2013. HISTORY: chronic pain CT DLP: 670.6 mGycm. Automated Exposure Control for Dose Reduction was Utilized. TECHNIQUE: CT scan of the cervical spine is obtained following intrathecal injection of contrast, ax ial images are obtained, sagittal and coronal reformatted images are also reviewed. 15 cc of Isovue 2 00 injected. FINDINGS: Successful opacification of the cervical spinal canal. Cervical spine is visualized in its entirety from C1 through upper thoracic levels, demonstrates stable alignment with normal cervical cu rvature centered at C5-C6 level. Prevertebral soft tissue appears within normal limits. The C1-C2 a rticulation is within normal limits on the coronal images. Vertebral body heights are maintained. Mod erate anterior spurring and mild to moderate disc space narrowing C5-C6 and C6-C7 levels. Redemonstra tion of spinal stimulator from mid C3 through mid C5 vertebra and the posterior spinal canal causing streak artifact limiting evaluation at these levels. Axial images at C2-C3 level are felt within normal limits. Axial images at C5-C6 level are within normal limits on axial image 48. Axial images at C6-C7 level show persistent broad-based disc protrusion effacing the anterior thecal sac. Bilateral neural foramina are patent. Axial images at C7-T1 level remain within normal limits. Stimulators in the right mid to lower cervical paraspinal muscles noted. IMPRESSION: Multilevel degenerative changes as detailed above. Suboptimal evaluating the C3-C4 level which had disc herniation on 2013 MRI due to artifact from spinal stimulator. Disc herniation C6-C7 level redemonstrated without obvious progression from 2013 MRI.
--- NOTE | 2020-03-18 11:30 | FL ---
EXAMINATION TYPE: FL myelogram 2 or more regions DATE OF EXAM: 03/18/2020 COMPARISON: NONE HISTORY: Chronic neck and back pain. Informed consent was obtained and all the patient's questions were answered. The L3-L4 level was loc alized under fluoroscopy. Standard sterile technique was utilized as well as appropriate local anest hesia 1% Lidocaine . Spinal needle was introduced into the thecal sac under fluoroscopic guidance an d 15 mL's of Isovue 200 was injected. The patient tolerated the procedure well and left the [facility] in stable condition. CT myelography is to follow. This report was dictated separately. 8 spot images saved during procedure. Total 3 minutes 13 seconds fluoroscopic time utilized. Images s how successful accessed and contrast injection. Incidental cholecystectomy clips and overlying stimul ator. IMPRESSION: Successful myelography lumbar spine for subsequent CT.
[2020-03-18 12:04] VITALS: BP 118/70; PULSE 71
== END 2020-03-18 13:35 | disposition home or self-care (01) ==
LOC: RADPROMAIN 07:44
PROVIDERS: ATTEND Neurological Surgery
DX: G89.29 Other chronic pain (principal); M50.123 Cervical disc disorder at C6-C7 level with radiculopathy; G54.4 Lumbosacral root disorders, not elsewhere classified; Z96.82 Presence of neurostimulator; Z90.49 Acquired absence of other specified parts of digestive tract
CPT/HCPCS: 62305; 72126; 72132; J2001; Q9966

== ENCOUNTER → 2020-07-19 | Outpatient (CLI) | payer MEDICARE ==
--- NOTE | 2020-07-19 16:37 | BD ---
EXAMINATION TYPE: Axial Bone Density DATE OF EXAM: 07/19/2020 COMPARISON: NONE CLINICAL HISTORY: Height: 5 FT 2 1/4 IN Weight: 210 FRAX RISK QUESTIONS: Alcohol (3 or more units per day): NO Family History (Parent hip fracture): YES Glucocorticoids (More than 3mos): NO (Ex: prednisone, prednisolone, methylprednisolone, dexamethasone, and hydrocortisone). History of Fracture in Adulthood: NO Secondary Osteoporosis: 1. Type 1 Diabetes: NO 2. Hyperthyroidism: NO 3. Menopause before 45: NO 4. Malnutrition: NO 5. Chronic liver disease: NO Rheumatoid Arthritis: NO Current Tobacco Use: NO RISK FACTORS HISTORY OF: Surgery to Spine/Hip(right/left)/Wrist (right/left): NEURO STIMULATER PLACED NEAR C SPINE AND LUMBAR SPINE MAR 2020 AND JUN 2020 FOR PAIN Family History of Osteoporosis: NO Active: SOMEWHAT Diet low in dairy products/other sources of calcium: NO Postmenopausal woman: ON CONTROL FOR TWO YEARS Lost more than 2 inches in height since high school: NO MEDICATIONS: Additional Medications: CONTROL, CYMBALTA,TOPOMAX, INDURAL, FOLIC ACID, ABILIFY, OXYBUTIN, CLON AZEPAM, VITAMIN , MONTELUKAST, METHOTREXATE, LATANOPROST, Additional History: EXAM MEASUREMENTS: Bone mineral densitometry was performed using the [employer] System. Bone mineral density as measured about the Lumbar spine is: ----- L1-L4(G/cm2): 1.221 T Score Values are as follows: ----- L2: 0.9 ----- L3: 0.8 ----- L4: 0.2 ----- L1-L4: 0.3 BASELINE Bone mineral density about the R hip (g/cm2): 1.112 Bone mineral density about the L hip (g/cm2): 1.094 T Score values are as follows: -----R Neck: 0.5 -----L Neck: 0.4 -----R Total: 1.3 -----L Total: 1.7 BASELINE IMPRESSION: Normal (Values between +1 and -1 indicate normal bone mass). Consider repeating this study in 5 year s or sooner if there is some new clinical indication. NOTE: T-SCORE=SD OF THE YOUNG ADULT MEAN.
--- NOTE | 2020-07-20 11:03 | MM ---
Reason for exam: screening (asymptomatic). Last mammogram was performed 2 years and 11 months ago. History: Family history of breast cancer in mother at age 76. Taking hormonal contraceptives for 5 years. Physical Findings: A clinical breast exam by your physician is recommended on an annual basis and results should be correlated with mammographic findings. MG 3D Screening Mammo W/Cad Bilateral CC and MLO view(s) were taken. Prior study comparison: August 20, 2017, bilateral MG 3d screening mammo w/cad. July 04, 2016, bilateral MG screening mammo w CAD. There are scattered fibroglandular densities. No significant changes when compared with prior studies. ASSESSMENT: Benign, BI-RAD 2 RECOMMENDATION: Routine screening mammogram of both breasts in 1 year.
== END | disposition home or self-care (01) ==
LOC: RADMAMWWP 08:01
PROVIDERS: ATTEND Obstetrics & Gynecology
DX: Z12.31 Encounter for screening mammogram for malignant neoplasm of breast (principal); M85.88 Other specified disorders of bone density and structure, other site; N95.1 Menopausal and female climacteric states
CPT/HCPCS: 77063; 77067; 77080

== ENCOUNTER → 2021-02-20 | Outpatient (CLI) | payer MEDICARE ==
--- NOTE | 2021-02-20 08:56 | CT ---
EXAMINATION TYPE: CT lumbar spine wo con DATE OF EXAM: 02/20/2021 8:27 AM COMPARISON: 03/18/20 HISTORY: Lower back pain with pain and numbness down right leg. CT DLP: 1342.9 mGycm Automated exposure control for dose reduction was used. Unenhanced CT of the lumbar spine was performed. Bone and soft tissue window settings are submitted as well as coronal and sagittal reconstructions. L1-L2: Normal disc space height. No disc herniation protrusion or central stenosis. No facet joint arthropathy. No evidence for foraminal encroachment. L2-L3: Normal disc space height. No disc herniation protrusion or central stenosis. Mild facet joint arthropathy. No evidence for foraminal encroachment. L3-L4: Normal disc space height. No disc herniation protrusion or central stenosis. Mild facet joint arthropathy.. No evidence for foraminal encroachment. L4-L5: Normal disc space height. No disc herniation protrusion or central stenosis. No facet joint arthropathy. No evidence for foraminal encroachment. L5-S1: Normal disc space height. No disc herniation protrusion or central stenosis. Moderate facet j oint arthropathy redemonstrated. No evidence for foraminal encroachment. IMPRESSION: Facet joint arthropathy. No significant disc herniation protrusion or central stenosis at this time.
== END | disposition home or self-care (01) ==
LOC: RADCTMAIN 07:25
PROVIDERS: ATTEND Psychiatry & Neurology Neurology
DX: M47.817 Spondylosis without myelopathy or radiculopathy, lumbosacral region (principal)
CPT/HCPCS: 72131

== ENCOUNTER 2021-06-09 09:54 | Day surgery (SDC) | payer MEDICARE ==
[2021-06-07 12:40] VITALS: BMI 45.7
[~2021-06-09 09:54] MED LIST changes: +LACTATED RINGERS 1,000 ML IV SCH; -PREMYELOGRAM MEDICATION REVIEW 1 EACH MISC PO PRN
[2021-06-09 10:22] VITALS: RESP 18; TEMP 97.8
[2021-06-09] MEDS ORDERED: LIDOCAINE 1% (10MG/ML) FOR IV START INTRADERMA ONE (10:31)
[2021-06-09] MEDS ORDERED: PROPOFOL 10 MG/ML 20 ML VIAL IV ONE (11:21)
--- NOTE | 2021-06-09 11:38 | P.PCN ---
Date of Procedure: 06/09/21 Procedure(s) Performed: BRIEF HISTORY: Patient is a 50-year-old pleasant white female scheduled for an elective colonoscopy as a part of screening for colorectal neoplasia. PROCEDURE PERFORMED: Colonoscopy. PREOPERATIVE DIAGNOSIS: Screening for colon cancer. IV sedation per Anesthesia. PROCEDURE: After informed consent was obtained, the patient, was brought into the endoscopy unit. IV sedation was administered by Anesthesia under continuous monitoring. Digital rectal examination was normal. Initially the Olympus CF-160 flexible video colonoscope was then inserted in the rectum, gradually advanced into the cecum without any difficulty. Careful examination was performed as the scope was gradually being withdrawn. Ileocecal valve and the appendiceal orifice were visualized and appeared normal. Prep was excellent. Mucosa of the cecum, ascending colon, transverse colon, descending colon, sigmoid colon, and rectum appeared normal. Retroflexion was performed in the rectum and no lesions were seen. The patient tolerated the procedure well. IMPRESSION: Normal-appearing colon from rectum to cecum with no evidence of colorectal neoplasia . RECOMMENDATIONS: Findings of this examination were discussed with the patient as well as a family. She was advised to have a repeat screening colonoscopy in 10 years..
[2021-06-09 12:07] VITALS: BP 120/81; PULSE 58
== END 2021-06-09 12:23 | disposition home or self-care (01) ==
LOC: ORWHC2ENDO 09:54
PROVIDERS: ATTEND Internal Medicine Gastroenterology
DX: Z12.11 Encounter for screening for malignant neoplasm of colon (principal); J45.909 Unspecified asthma, uncomplicated; G47.33 Obstructive sleep apnea (adult) (pediatric); F41.9 Anxiety disorder, unspecified; F32.9 Major depressive disorder, single episode, unspecified
CPT/HCPCS: 81025; G0121; J2704

== ENCOUNTER → 2021-07-20 | Outpatient (CLI) | payer MEDICARE ==
--- NOTE | 2021-07-21 13:56 | MM ---
Reason for exam: screening (asymptomatic). Last mammogram was performed 1 year ago. History: Family history of breast cancer in mother at age 76. Taking hormonal contraceptives for 5 years. Physical Findings: A clinical breast exam by your physician is recommended on an annual basis and results should be correlated with mammographic findings. MG 3D Screening Mammo W/Cad Bilateral CC and MLO view(s) were taken. Prior study comparison: July 19, 2020, bilateral MG 3d screening mammo w/cad. August 20, 2017, bilateral MG 3d screening mammo w/cad. The breast tissue is heterogeneously dense. This may lower the sensitivity of mammography. There is no discrete abnormality. No significant changes when compared with prior studies. ASSESSMENT: Negative, BI-RAD 1 RECOMMENDATION: Routine screening mammogram of both breasts in 1 year.
== END | disposition home or self-care (01) ==
LOC: RADMAMWWP 08:39
PROVIDERS: ATTEND Obstetrics & Gynecology
DX: Z12.31 Encounter for screening mammogram for malignant neoplasm of breast (principal); Z80.3 Family history of malignant neoplasm of breast
CPT/HCPCS: 77063; 77067

== ENCOUNTER → 2021-09-06 | Outpatient (CLI) | payer MEDICARE ==
--- NOTE | 2021-09-06 15:56 | P.HPBAR ---
Bariatric H&P - History & Physicial H&P Date: 09/06/21 History & Physicial: Visit/CC: Patient initial contact: Initial weight: Initial weight in pounds: Height: Initial BMI: Last weight: Current weight: Current weight in pounds: Current BMI: [place] body weight (based on NIH guidelines): Excess body weight loss: The patient is a 50 year-old F who presents for Bariatric Assessment. DATE OF SERVICE: 09/06/2021 REASON FOR CONSULTATION: Initial bariatric evaluation. HISTORY OF PRESENT ILLNESS: Vesta Yañez is a 50-year-old female who comes with lifelong morbid obesity. She comes in looking into the gastric band. She has tried multiple diets. She had her gallbladder removed. Her sister has trouble with weight including her brother. She has tried Ali and protein diets with her doctor. She does not want an invasive procedure. She has gastroesophageal reflux disease. Her highest weight is 228 pounds. She has lost 13 pounds in 3 months. She has neurostimulator in the neck and her back for chronic pain. She has troubles sleeping. She has insomnia. She has fibromyalgia. She comes first time in consultation for weight loss. At height of 5 feet 2 inches, her ideal body weight is 135 pounds. Her highest weight is 228 pounds, body mass index 41.8. She comes in 214 pounds. Her body mass index is 39.3. She is 80 pounds overweight. PAST MEDICAL HISTORY: 1. Morbid obesity due to excess calories 2. Body mass index of 39.3 3. Depressive disorder 4. Glaucoma 5. Hypertensive heart disease 6. Overactive bladder 7. Rheumatoid arthritis 8. Insomnia 9. Osteoarthritis of the knees 10. Chronic pain syndrome 11. Osteoarthritis lower back 12. Asthma 13. Fibromyalgia 14. Gastroesophageal reflux disease. PAST SURGICAL HISTORY: 1. Knee replacement 2. Neurostimulator 3. Cholecystectomy HOME MEDICATIONS: Home Medications Medication Instructions Recorded Confirmed ARIPiprazole [Abilify] 10 mg PO DAILY 01/26/19 09/07/21 DULoxetine HCL [Cymbalta] 60 mg PO DAILY 01/26/19 09/07/21 Latanoprost [Xalatan 0.005%] 1 drop BOTH EYES HS 01/26/19 09/07/21 Propranolol HCl [Inderal Xl] 80 mg PO DAILY 01/26/19 09/07/21 Topiramate [Topamax] 100 mg PO BID 01/26/19 09/07/21 clonazePAM [KlonoPIN] 0.5 mg PO TID 01/26/19 09/07/21 Oxybutynin Chloride [Ditropan XL] 10 mg PO BID 03/08/20 09/07/21 Brimonidine/Dorzolamide/Pf 1 drop BOTH EYES BID 06/07/21 09/07/21 [Brimonidine 0.15%-Dorzolam 2%] Folic Acid 1 mg PO DAILY 06/07/21 09/07/21 Minocycline HCl [Minocin] 100 mg PO DAILY 06/07/21 09/07/21 Ramelteon 8 mg PO DIRECTED 09/07/21 09/07/21 metHOTREXate sodium [Methotrexate] 12.5 mg PO WEEKLY 09/07/21 09/07/21 Previous Rx's Medication Instructions Recorded Montelukast [Singulair] 10 mg PO HS #30 tab 01/27/19 ALLERGIES: Allergies Allergy/AdvReac Type Severity Reaction Status Date / Time Iodinated Contrast Media Allergy Rash/Hives Verified 06/09/21 10:15 peanut Allergy Rash/Hives Verified 06/09/21 10:15 soy Allergy Rash/Hives Verified 06/09/21 10:15 SOCIAL HISTORY: Denies tobacco use. FAMILY HISTORY: No family history of ulcerative colitis disease or Crohn's disease. Family history of morbid obesity. No lupus in the family. No reports of stomach or esophageal cancer. Her sister has trouble with weight including her brother. REVIEW OF ORGAN SYSTEMS: CONSTITUTIONAL: At height of 5 feet 2 inches, her ideal body weight is 135 pounds. Her highest weight is 228 pounds, body mass index 41.8. She comes in 214 pounds. Her body mass index is 39.3. She is 80 pounds overweight. HEENT: Denies any active troubles with hearing. Glaucoma ENDOCRINE: Denies diabetes. Denies hypothyroidism. CARDIOVASCULAR: Denies past reports of palpitations or heart attacks or chest pain. Has hypertensive heart disease. RESPIRATORY: Has daytime somnolence and trouble sleeping. Has asthma. GASTROINTESTINAL: Denies any bright red blood per rectum. No diarrhea. No constipation. Has gastroesophageal reflux disease. GENITOURINARY: Has bladder urgency. No recent blood in urine MUSCULOSKELETAL: Has lower back pain and joint pain. Denies history of bilateral lower extremity edema. Has chronic pain. NEURO: Has chronic migraines. No seizure disorders. Has fibromyalgia. PSYCH: Has depression. No suicidal ideation. Has anxiety. Has insomnia. RHEUMATOLOGIC: No lupus. No rheumatoid arthritis. HEMATOLOGIC: Denies any abnormal bleeding or bruising. Denies past history of DVTs. SKIN: No rash. No skin cancer. PHYSICAL EXAM: VITAL SIGNS: Height 5 foot 2 inches, weight 214 pounds. BMI 39.3 Vital Signs Temp 98.2 F 09/06/21 16:33 Pulse 74 09/06/21 16:33 Resp 16 09/06/21 16:33 BP 120/80 09/06/21 16:33 Pulse Ox GENERAL: Well-developed in no acute distress. HEENT: No scleral icterus. Extraocular movements grossly intact. Hears conversational speech. No nasal drainage. NECK: Supple without lymphadenopathy. CHEST: Nonlabored respirations with equal bilateral excursions. CARDIOVASCULAR: Regular rate and regular rhythm. Distal 2+ pulses. ABDOMEN: Obese, soft, nontender, nondistended. MUSCULOSKELETAL: No clubbing, cyanosis. NEURO: No focal or lateralizing signs. Cranial nerves 2 through 12 grossly within normal limits. PSYCH: Appropriate affect. Alert and oriented to person, place and time. SKIN: Good skin turgor. Well perfused. ASSESSMENT: 1. Morbid obesity due to excess calories 2. Body mass index of 39.3 3. Depressive disorder 4. Glaucoma 5. Hypertensive heart disease 6. Overactive bladder 7. Rheumatoid arthritis 8. Insomnia 9. Osteoarthritis of the knees 10. Chronic pain syndrome 11. Osteoarthritis lower back 12. Asthma 13. Fibromyalgia 14. Gastroesophageal reflux disease. PLAN: 1. Surgical options including a band, gastric bypass, sleeve gastrectomy were described in detail. Alternatives such as gastric balloon including duodenal switch were described. 2. The [place] bariatric surgical collaborative data and outcomes calculator were described with surgical options. 3. Recommend a bariatric metabolic panel to evaluate for micro- including macronutrient deficiencies. 4. For history of daytime somnolence, recommend evaluation and treatment for sleep apnea. 5. Dietary surveillance and counseling was reviewed. Increased protein intake over 65 grams daily advised. 6. Will need cardiac risk assessment. 7. Recommend medical risk assessment. 8. Psych assessment per insurance guidelines. 9. Recommend upper endoscopy. 10. Recommend 12-lead EKG. 11. Recommend urine nicotine testing pre-op 12. Recommend urine drug screen Thank you for this consultation. Past Medical History Past Medical History: Asthma, Fibromyalgia, Sleep Apnea/CPAP/BIPAP Additional Past Medical History / Comment(s): glaucoma, RP, bulging and herniated discs History of Any Multi-Drug Resistant Organisms: None Reported Past Surgical History: Orthopedic Surgery Additional Past Surgical History / Comment(s): neuro stimulator, knee replacement Smoking Status: Never smoker - Past Family History Mother Family Medical History: Cancer Additional Family Medical History / Comment(s): lung cancer Results - Labs 09/06/21 16:28 09/06/21 16:28 Bariatric Checklist Checklist: Plan: Checklist: EGD: 1. Hiatal hernia: 2. H. Pylori: HgbA1c: Vitamin D: Smoking: Never smoker Primary care physician referral: Psychiatry clearance: Cardiology clearance: Sleep study: Diet journal: VTE risk score: VTE risk level: Rehab needs at discharge:
[2021-09-06 16:36] VITALS: BP 120/80; PULSE 74; RESP 16; TEMP 98.2; BMI 39.3
[2021-09-06 23:28] LABS: HCT 42.4 % (37.2-46.3); HGB 14.3 g/dL (12.0-15.0); MCH 32.5 pg (27.0-32.0); MCHC 33.7 g/dL (32.0-37.0); MCV 96.4 fL (80.0-97.0); Mean Platelet Volume 9.9 fL (9.5-12.2); NRBC Per 100 WBC 0 /100 WBCS (0.0-0.0); Platelet Count 268 X 10*3/uL (140-440); RDW 13.6 % (11.5-14.5); WBC 7.62 X 10*3/uL (4.50-10.00)
[2021-09-06 23:44] LABS: Chol/HDL Ratio 4.21 Ratio; LDL Cholesterol,Calculated 108.5 mg/dL (0.0-131.0); Prealbumin 19.6 mg/dL (18.0-42.0)
[2021-09-07 02:23] LABS: Folate, Serum >20.00 ng/mL (4.40-31.00)
[2021-09-07 05:35] LABS: % Iron Saturation 27.44 (12.00-45.00); ALT 7 U/L (8-44); AST 13 U/L (13-35); African American GFR (CKD) 98.9 (60.0-200.0); Albumin 4.4 g/dL (3.8-4.9); Albumin/Globulin Ratio 1.57 (1.60-3.17); Alkaline Phosphatase 73 U/L (41-126); Blood Urea Nitrogen 12.4 mg/dL (9.0-27.0); Calcium 9.3 mg/dL (8.7-10.3); Carbon Dioxide 17.2 mmol/L (20.0-27.5); Chloride 107 mmol/L (96-109); Globulin 2.8 g/dL (1.6-3.3); Glucose 79 mg/dL (70-110); Iron 85 ug/dL (50-170); Non-African American GFR(CKD) 85.4 (60.0-200.0); Phosphorus 3.1 mg/dL (2.4-5.1); Potassium 3.9 mmol/L (3.5-5.5); Sodium 141 mmol/L (135-145); Total Iron Binding Capacity 308 ug/dL (228-460); Total Protein 7.2 g/dL (6.2-8.2)
[2021-09-07 06:32] LABS: INR 0.97 (0.90-1.11); Partial Thromboplastin Time 31.6 sec (23.5-31.0)
[2021-09-07 13:18] LABS: Zinc, Serum 72 ug/dL (60-130)
[2021-09-08 06:19] LABS: Vitamin A 52 ug/dL (38-106)
[2021-09-08 13:43] LABS: Vit B1(Thiamine) 93 ug/L (38-122)
[2021-09-09 10:57] LABS: Anabasine Urine <2.0 ng/mL (<2.0)
[2021-09-12 08:55] LABS: Selenium 133 mcg/L (63-160)
== END ==
LOC: BARWHC3 14:38
PROVIDERS: ATTEND Surgery Plastic and Reconstructive Surgery
DX: E66.01 Morbid (severe) obesity due to excess calories (principal); D50.8 Other iron deficiency anemias; E44.0 Moderate protein-calorie malnutrition; E55.9 Vitamin D deficiency, unspecified; K74.1 Hepatic sclerosis; N19 Unspecified kidney failure; K50.90 Crohn's disease, unspecified, without complications; Z68.39 Body mass index [BMI] 39.0-39.9, adult; F32.A Depression, unspecified; H40.9 Unspecified glaucoma; I11.9 Hypertensive heart disease without heart failure; N32.81 Overactive bladder; M06.9 Rheumatoid arthritis, unspecified; G47.00 Insomnia, unspecified; M17.0 Bilateral primary osteoarthritis of knee; M47.9 Spondylosis, unspecified; G89.4 Chronic pain syndrome; J45.909 Unspecified asthma, uncomplicated; M79.7 Fibromyalgia; K21.9 Gastro-esophageal reflux disease without esophagitis; Z91.041 Radiographic dye allergy status; Z91.010 Allergy to peanuts; Z91.018 Allergy to other foods
CPT/HCPCS: 84255; 84134; 84425; 80061; 80053; 82607; 82728; 82525; 82746; 83540; 83550; 83735; 84100; 84443; 84590; 84630; 85027; 85610; 85730; 82306; 83970; 83036; 80307; 93005; 36415; G0480; G0482; G0463; 80323; 99203

== ENCOUNTER → 2021-11-30 | Outpatient (CLI) | payer MEDICARE ==
[2021-11-30 14:36] LABS: HCT 42.7 % (37.2-46.3); MCH 32.6 pg (27.0-32.0); MCHC 32.8 g/dL (32.0-37.0); MCV 99.5 fL (80.0-97.0); Mean Platelet Volume 10.5 fL (9.5-12.2); NRBC Per 100 WBC 0 /100 WBCS (0.0-0.0); Platelet Count 249 X 10*3/uL (140-440); RBC 4.29 X 10*6/uL (4.10-5.20); RDW 14.1 % (11.5-14.5); WBC 4.39 X 10*3/uL (4.50-10.00)
[2021-11-30 16:30] LABS: ALT 10 U/L (8-44); AST 16 U/L (13-35); Blood Urea Nitrogen 10.3 mg/dL (9.0-27.0); Calcium 9.4 mg/dL (8.7-10.3); Carbon Dioxide 23.1 mmol/L (20.0-27.5); Chloride 112 mmol/L (96-109); Chol/HDL Ratio 5.12 Ratio; Glucose 100 mg/dL (70-110); LDL Cholesterol,Calculated 118.1 mg/dL (0.0-131.0); Non-African American GFR(CKD) 64.7 (60.0-200.0); Potassium 3.9 mmol/L (3.5-5.5); Sodium 146 mmol/L (135-145)
== END | disposition home or self-care (01) ==
LOC: LABWHC1 08:17
PROVIDERS: ATTEND Internal Medicine Cardiovascular Disease
DX: E78.2 Mixed hyperlipidemia (principal)
CPT/HCPCS: 36415; 80048; 80061; 84443; 84450; 84460; 85027

== ENCOUNTER → 2021-12-27 | Outpatient (CLI) | payer MEDICARE ==
--- NOTE | 2021-12-27 17:16 | US ---
EXAMINATION TYPE: US pelvis complete transvag DATE OF EXAM: 12/27/2021 COMPARISON: NONE CLINICAL HISTORY: Z97.5 IUD POSITION. IUD position. Kyleena IUD was placed in June. Patient state s she had abnormal bleeding x 2 months after. . TECHNIQUE: Transvaginal (TV) and Transabdominal (TA) . Transabdominal sonographic images of the pel vis were acquired. Transvaginal sonographic images were medically necessary to better assess the fol lowing anatomy: Right ovary and endometrium. Date of LMP: EXAM MEASUREMENTS: Uterus: 8.7 x 5.2 x 3.8 cm Endometrial Stripe: 0.56 cm Right Ovary: 2.4 x 1.5 x 2.0 cm Left Ovary: 3.4 x 2.0 x 1.4 cm 1. Uterus: Anteverted Appears slightly heterogeneous. Anechoic area seen in cervix: 1.3 x 1.0 x 0.9 cm. 2. Endometrium: IUD appears to be in upper endometrium. 3. Right Ovary: Largest anechoic area seen measures 1.1 x 1.1 x 1.1 cm. Hyperechoic focus seen: 0.2 x 0.2 x 0.1 cm. 4. Left Ovary: Anechoic area seen: 2.2 x 1.6 x 1.1 cm. 5. Bilateral Adnexa: Complex area seen adjacent to the left ovary: 1.8 x 2.0 x 1.0 cm. 6. Posterior cul-de-sac: Appears wnl IMPRESSION: 1. IUD within the endometrial canal. 2. Simple appearing ovarian cysts. 3. Complex left adnexal cyst. Underlying neoplasm is not excluded. Follow-up in 6 weeks is recommend ed.
== END | disposition home or self-care (01) ==
LOC: RADUSWWP 08:30
PROVIDERS: ATTEND Obstetrics & Gynecology
DX: N83.209 Unspecified ovarian cyst, unspecified side (principal); Z97.5 Presence of (intrauterine) contraceptive device
CPT/HCPCS: 76830; 76856

== ENCOUNTER → 2022-02-15 | Outpatient (CLI) | payer MEDICARE ==
--- NOTE | 2022-02-15 09:45 | US ---
EXAMINATION TYPE: US pelvic complete DATE OF EXAM: 02/15/2022 COMPARISON: US 2021 CLINICAL HISTORY: N83.202 Ovarian cyst left side.. Follow up left ovarian cyst TECHNIQUE: . Transabdominal sonographic images of the pelvis were acquired. Transvaginal sonographi c images were medically necessary to better assess the following anatomy: Date of LMP: Unknown EXAM MEASUREMENTS: Uterus: 7.7 x 4.2 x 3.7 cm Endometrial Stripe: 0.8 cm Right Ovary: not seen Left Ovary: 2.9 x 1.5 x 2.5 cm 1. Uterus: anteverted, heterogeneous, multiple nabothian cysts 2. Endometrium: appears wnl, IUD seen in place 3. Right Ovary: not seen 4. Left Ovary: 1.6cm cyst 5. Bilateral Adnexa: left adnexa: 1.8cm complex area seen adjacent to left ovary 6. Posterior cul-de-sac: wnl IMPRESSION: 1. Complex cyst left ovary could reflect small hemorrhagic cyst. Consider follow-up study in 6 weeks. 2. IUD is noted to be in place.
== END | disposition home or self-care (01) ==
LOC: RADUSWWP 07:23
PROVIDERS: ATTEND Obstetrics & Gynecology
DX: N83.202 Unspecified ovarian cyst, left side (principal); N88.8 Other specified noninflammatory disorders of cervix uteri
CPT/HCPCS: 76830; 76856

== ENCOUNTER 2022-10-27 11:54 | Emergency (ER) | payer MEDICARE ==
[2022-10-27] MEDS ORDERED: diphenhydrAMINE 50 MG/ML 1 ML VIAL IVP STA (13:02)
[2022-10-27] MEDS ORDERED: FAMOTIDINE 20 MG/2 ML VIAL IV STA (13:02)
[2022-10-27] MEDS ORDERED: methylPREDNISolone SOD SUCCI 125 MG/2 ML VIAL IV STA (13:02)
--- NOTE | 2022-10-27 13:02 | ED ---
Extremity Problem HPI - General Chief complaint: Extremity Problem,Nontraumatic Stated complaint: Leg Swelling,Chest Pain Time Seen by Provider: 10/27/22 12:20 Source: patient, RN notes reviewed Mode of arrival: ambulatory Limitations: no limitations - History of Present Illness Initial comments: This is a 52-year-old female who presents to the emergency department for multiple complaints. States over the last week, she has developed increasing swelling in the bilateral lower extremities. She's also had increasing chest pain, shortness of breath, and dizziness. Believes that she has gained 35 pounds over the last couple of weeks and she has also started to notice swelling in her arms. The legs feel like they're burning and are very painful. Denies any history of similar symptoms in the past. She was seen at [facility] 4 days ago and had lab work, a chest x-ray, and an EKG revealing no acute findings. She was started on Keflex for possible cellulitis. Her friend states that she has continued to get worse since starting treatment. Additionally, she notes that she has struggled with insomnia for over a year. Denies any fevers, chills, sore throat, cough, dyspnea, palpitations, nausea, vomiting, diarrhea, back pain, or headaches. MD Complaint: extremity swelling Onset/Timin -: week(s) Location: bilateral lower extremity - Related Data Home Medications Medication Instructions Recorded Confirmed ARIPiprazole [Abilify] 10 mg PO DAILY 01/26/19 10/27/22 DULoxetine HCL [Cymbalta] 60 mg PO DAILY 01/26/19 10/27/22 Latanoprost [Xalatan 0.005%] 1 drop BOTH EYES 01/26/19 10/27/22 Propranolol HCl [Inderal Xl] 80 mg PO DAILY 01/26/19 10/27/22 Topiramate [Topamax] 100 mg PO BID 01/26/19 10/27/22 Oxybutynin Chloride [Ditropan XL] 20 mg PO DAILY 03/08/20 10/27/22 Folic Acid 1 mg PO DAILY 06/07/21 10/27/22 Minocycline HCl [Minocin] 100 mg PO DAILY 06/07/21 10/27/22 Ramelteon 8 mg PO 09/07/21 10/27/22 metHOTREXate sodium [Methotrexate] 25 mg PO TH 09/07/21 10/27/22 Brimonidine Tartrate [Alphagan P 1 drops BOTH EYES BID 10/27/22 10/27/22 0.15% Ophth Soln] Cephalexin [Keflex] 500 mg PO QID 10/27/22 10/27/22 Montelukast [Singulair] 10 mg PO DAILY 10/27/22 10/27/22 Multivit-Min/Iron/Folic/Lutein 1 tab PO DAILY 10/27/22 10/27/22 [Centrum Silver Women Tablet] Previous Rx's Medication Instructions Recorded Furosemide [Lasix] 20 mg PO DAILY #15 tab 10/27/22 Allergies Allergy/AdvReac Type Severity Reaction Status Date / Time Iodinated Contrast Media Allergy Rash/Hives Verified 10/27/22 13:50 peanut Allergy Rash/Hives Verified 10/27/22 13:50 soy Allergy Rash/Hives Verified 10/27/22 13:50 Review of Systems ROS Statement: Those systems with pertinent positive or pertinent negative responses have been documented in the HPI. ROS Other: All systems not noted in ROS Statement are negative. Past Medical History Past Medical History: Asthma, Fibromyalgia, Sleep Apnea/CPAP/BIPAP Additional Past Medical History / Comment(s): glaucoma, RP, bulging and herniated discs History of Any Multi-Drug Resistant Organisms: None Reported Past Surgical History: Orthopedic Surgery Additional Past Surgical History / Comment(s): neuro stimulator, knee replacem ent Past Psychological History: Anxiety, Depression Smoking Status: Never smoker Past Alcohol Use History: Rare Past Drug Use History: None Reported - Past Family History Mother Family Medical History: Cancer Additional Family Medical History / Comment(s): lung cancer General Exam Limitations: no limitations General appearance: alert, in no apparent distress Head exam: Present: atraumatic, normocephalic, normal inspection Respiratory exam: Present: normal lung sounds bilaterally. Absent: respiratory distress, wheezes, rales, rhonchi, stridor Cardiovascular Exam: Present: regular rate, normal rhythm, normal heart sounds. Absent: systolic murmur, diastolic murmur, rubs, gallop, clicks GI/Abdominal exam: Present: soft, normal bowel sounds. Absent: distended, tenderness, guarding, rebound, rigid Extremities exam: Present: other (Nonpitting bilateral lower extremity swelling and erythema with bilateral calf tenderness. 2+ DP and TP pulses bilaterally and capillary refill <1 second.) Neurological exam: Present: alert, oriented X3, CN II-XII intact Psychiatric exam: Present: normal affect, normal mood Skin exam: Present: warm, dry, intact Course Vital Signs 10/27/22 10/27/22 10/27/22 12:13 13:31 16:03 Temperature 98 F 98.2 F Pulse Rate 65 75 85 Respiratory 22 18 18 Rate Blood Pressure 166/127 123/78 103/67 O2 Sat by Pulse 99 100 99 Oximetry Medical Decision Making - Medical Decision Making This is a 52-year-old female who presents to the emergency department for chest pain and bilateral lower extremity swelling. Was pt. sent in by a medical professional or institution? @ -No Did you speak to anyone other than the patient for history? @ -Her friend Did you review nursing and triage notes? @ -Yes, and I agree, it is accurate with regards to the patient's symptoms. Were old charts reviewed? @ -Yes, lab work and imaging from [facility] on 10/23 revealing a negative Duplex US of the bilateral LE, negative chest x-ray, and lab work including a CBC, CMP, TSH, lactic acid, troponin, and BNP that were WNL. Differential Diagnosis? @ -Differential Chest Pain: Stable Angina, Unstable Angina, STEMI, NSTEMI Aortic Dissection, Pneumothorax, Musculoskeletal, Esophageal Spasm GERD, Cholecystitis, Pancreatitis, Zoster, this is not meant to be an all-inclusive list. -Differential Bilateral LE Swelling: Hypothyroidism, DVT, IVC thrombosis, liver failure, kidney failure, cellulitis, lymphadema, CHF, this is not meant to be an all-inclusive list. EKG interpreted by me (3pts min.)? @ -Sinus rhythm. Ventricular rate 72 bpm, MN interval 127 ms, QRS duration 97 ms, QTC [address] interpreted by me (1pt min.)? @ -Computed tomography scan of the abdomen and pelvis obtained. My interpretation identifies no evidence of bowel wall thickening What testing was considered but not performed? (CT, X-rays, U/S, labs)? Why? @ -None What meds were considered but not given? Why? @ -None Did you discuss the management of the patient with other professionals? @ -No Did you reconcile home meds? @ -No Was smoking cessation discussed for >3mins.? @ -No Was critical care preformed (if so, how long)? @ -No Were there social determinants of health that impacted care today? How? (Homelessness, low income, unemployed, alcoholism, drug addiction, transportation, low edu. Level, literacy, decrease access to med. care, half-way, rehab)? @ -No Was there de-escalation of care discussed even if they declined? (Discuss DNR or withdrawal of care, Hospice)? @ -No What co-morbidities impacted this encounter? (DM, HTN, Smoking, COPD, CAD, Cancer, CVA, Hep., AIDS, mental health diagnosis, sleep apnea, morbid obesity)? @ -Obesity, fibromyalgia, RANDA Was patient admitted / discharged? @ -Discharged. Lab work obtained and found to be nonactionable. Computed tomography scan of the abdomen and pelvis was obtained to look for any evidence of a bowel obstruction or IVC thrombosis that could contribute to these symptoms. No irregularities were found to account for her symptoms. Dr. Alexander evaluated the patient alongside of me as well, and we were unable to definitively determine what may be causing her symptoms, as she did not have any signs of CHF, hypothyroidism, liver failure, kidney failure, or thrombosis. Discussed that this may be related to obstructive sleep apnea. Patient has this listed as a diagnosis, but cannot recall if she has ever been formally diagno sed. She does not wear a CPAP, nor has she ever been told to wear one. Given the insomnia, weight gain, and swelling, this is a possibility. She was given information for follow-up with a local sleep specialist. Advised she contact them for a follow-up appointment. Additionally, patient inquired about trying a diuretic. Advised that this is not a pitting edema to suggest water retention, and it therefore may not be effective. However, I am willing to try it. Prescription for Lasix provided. Advised she take it in the morning, as it will increase her urinary frequency. Otherwise advised she follow up with her primary care provider as soon as possible for reevaluation of symptoms and discussion of any additional testing. Undiagnosed new problem with uncertain prognosis? @ -None Drug Therapy requiring intensive monitoring for toxicity (Heparin, Nitro, Insulin, Cardizem)? @ -None Were any procedures done? @ -None Diagnosis/symptom? @ -Bilateral LE swelling, weight gain, chest pain Acute, or Chronic, or Acute on Chronic? @ -Acute Uncomplicated (without systemic symptoms) or Complicated (systemic symptoms)? @ -Uncomplicated Side effects of treatment? @ -None Exacerbation, Progression, or Severe Exacerbation] @ -Not applicable Poses a threat to life or bodily function? @ -No Diagnosis/symptom? @ -Insomnia Acute, or Chronic, or Acute on Chronic? @ -Chronic Uncomplicated (without systemic symptoms) or Complicated (systemic symptoms)? @ -Uncomplicated Side effects of treatment? @ -None Exacerbation, Progression, or Severe Exacerbation] @ -Progression Poses a threat to life or bodily function? @ -No Return precautions reviewed in depth, the patient is instructed to return to the emergency department with any new, worsening, or concerning symptoms. Patient verbalized understanding. This case was discussed in detail with the attending ED physician, Dr. Alexander. Presentation, findings, and treatment plan discussed in detail as well. - Lab Data Result diagrams: 10/27/22 13:27 10/27/22 13:27 Lab Results 10/27/22 10/27/22 10/27/22 Range/Units 13:27 13:27 13:27 WBC 7.6 (3.8-10.6) k/uL RBC 4.09 (3.80-5.40) m/uL Hgb 13.7 (11.4-16.0) gm/dL Hct 41.3 (34.0-46.0) % MCV 101.1 H (80.0-100.0) fL MCH 33.5 (25.0-35.0) pg MCHC 33.1 (31.0-37.0) g/dL RDW 13.9 (11.5-15.5) % Plt Count 329 (150-450) k/uL MPV 7.2 Neutrophils % 70 % Lymphocytes % 23 % Monocytes % 3 % Eosinophils % 3 % Basophils % 1 % Neutrophils # 5.3 (1.3-7.7) k/uL Lymphocytes # 1.7 (1.0-4.8) k/uL Monocytes # 0.2 (0-1.0) k/uL Eosinophils # 0.2 (0-0.7) k/uL Basophils # 0.0 (0-0.2) k/uL Macrocytosis Slight Sodium 139 (137-145) mmol/L Potassium 4.4 (3.5-5.1) mmol/L Chloride 110 H (98-107) mmol/L Carbon Dioxide 23 (22-30) mmol/L Anion Gap 6 mmol/L BUN 14 (7-17) mg/dL Creatinine 0.82 (0.52-1.04) mg/dL Est GFR (CKD-EPI)AfAm >90 (>60 ml/min/1.73 sqM) Est GFR (CKD-EPI)NonAf 82 (>60 ml/min/1.73 sqM) Glucose 105 H (74-99) mg/dL Calcium 9.1 (8.4-10.2) mg/dL Total Bilirubin 0.6 (0.2-1.3) mg/dL AST 51 H (14-36) U/L ALT 48 H (4-34) U/L Alkaline Phosphatase 97 (38-126) U/L Troponin I (0.000-0.034) ng/mL C-Reactive Protein <0.5 (<1.0) mg/dL NT-Pro-B Natriuret Pep 59 pg/mL Total Protein 6.9 (6.3-8.2) g/dL Albumin 4.1 (3.5-5.0) g/dL TSH 2.490 (0.465-4.680) mIU/L 10/27/22 Range/Units 13:27 WBC (3.8-10.6) k/uL RBC (3.80-5.40) m/uL Hgb (11.4-16.0) gm/dL Hct (34.0-46.0) % MCV (80.0-100.0) fL MCH (25.0-35.0) pg MCHC (31.0-37.0) g/dL RDW (11.5-15.5) % Plt Count (150-450) k/uL MPV Neutrophils % % Lymphocytes % % Monocytes % % Eosinophils % % Basophils % % Neutrophils # (1.3-7.7) k/uL Lymphocytes # (1.0-4.8) k/uL Monocytes # (0-1.0) k/uL Eosinophils # (0-0.7) k/uL Basophils # (0-0.2) k/uL Macrocytosis Sodium (137-145) mmol/L Potassium (3.5-5.1) mmol/L Chloride (98-107) mmol/L Carbon Dioxide (22-30) mmol/L Anion Gap mmol/L BUN (7-17) mg/dL Creatinine (0.52-1.04) mg/dL Est GFR (CKD-EPI)AfAm (>60 ml/min/1.73 sqM) Est GFR (CKD-EPI)NonAf (>60 ml/min/1.73 sqM) Glucose (74-99) mg/dL Calcium (8.4-10.2) mg/dL Total Bilirubin (0.2-1.3) mg/dL AST (14-36) U/L ALT (4-34) U/L Alkaline Phosphatase (38-126) U/L Troponin I <0.012 (0.000-0.034) ng/mL C-Reactive Protein (<1.0) mg/dL NT-Pro-B Natriuret Pep pg/mL Total Protein (6.3-8.2) g/dL Albumin (3.5-5.0) g/dL TSH (0.465-4.680) mIU/L - Radiology Data Radiology results: report reviewed, image reviewed Disposition Clinical Impression: Localized swelling of both lower legs, Insomnia Disposition: HOME SELF-CARE Condition: Fair Instructions (If sedation given, give patient instructions): Leg Edema (ED), Insomnia (ED) Additional Instructions: Return to the emergency department with any new, worsening, or concerning symptoms. I have listed two sleep specialists below. Contact them and let them know that you were seen in the emergency department and there is concern about sleep apnea contributing to your swelling, insomnia, and difficulty breathing, and they will schedule you for a follow-up appointment. Try taking the Lasix. Take this in the morning, as it will increase your urinary frequency. Follow up with your primary care provider in 1-2 days. Prescriptions: Furosemide [Lasix] 20 mg PO DAILY #15 tab Is patient prescribed a controlled substance at d/c from ED?: No Referrals: Tam Dobson MD [Primary Care Provider] - 1-2 days Scooby Hoyt MD [STAFF PHYSICIAN] - 1-2 days Tianna Campbell MD [STAFF PHYSICIAN] - 1-2 days
[2022-10-27 13:32] VITALS: RESP 18
[2022-10-27 13:48] LABS: Basophils % (A) 1 %; Eosinophils # (A) 0.2 k/uL (0-0.7); Eosinophils % (A) 3 %; HCT 41.3 % (34.0-46.0); HGB 13.7 gm/dL (11.4-16.0); Lymphocytes # (A) 1.7 k/uL (1.0-4.8); Lymphocytes % (A) 23 %; MCH 33.5 pg (25.0-35.0); MCHC 33.1 g/dL (31.0-37.0); MCV 101.1 fL (80.0-100.0); Macrocytosis Slight; Mean Platelet Volume 7.2; Monocytes # (A) 0.2 k/uL (0-1.0); Monocytes % (A) 3 %; Neutrophils # (A) 5.3 k/uL (1.3-7.7); Neutrophils % (A) 70 %; Platelet Count 329 k/uL (150-450); RBC 4.09 m/uL (3.80-5.40); RDW 13.9 % (11.5-15.5); WBC 7.6 k/uL (3.8-10.6)
[2022-10-27 13:58] LABS: ALT 48 U/L (4-34); AST 51 U/L (14-36); African American GFR (CKD) >90 (>60 ml/min/1.73 sqM); Albumin 4.1 g/dL (3.5-5.0); Alkaline Phosphatase 97 U/L (38-126); Anion Gap 6 mmol/L; Blood Urea Nitrogen 14 mg/dL (7-17); C Reactive Protein <0.5 mg/dL (<1.0); Calcium 9.1 mg/dL (8.4-10.2); Carbon Dioxide 23 mmol/L (22-30); Chloride 110 mmol/L (98-107); Glucose 105 mg/dL (74-99); Non-African American GFR(CKD) 82 (>60 ml/min/1.73 sqM); Potassium 4.4 mmol/L (3.5-5.1); Sodium 139 mmol/L (137-145); Total Bilirubin 0.6 mg/dL (0.2-1.3); Total Protein 6.9 g/dL (6.3-8.2)
--- NOTE | 2022-10-27 14:20 | CT ---
EXAMINATION TYPE: CT abdomen pelvis w con DATE OF EXAM: 10/27/2022 COMPARISON: HISTORY: LEG SWELLING, CHEST PAIN, ABD DISTENTION CT DLP: 1220.9 mGycm Automated exposure control for dose reduction was used. CONTRAST: Performed with IV Contrast, patient injected with 100 ML mL of Isovue 300. Images obtained from the diaphragm to the floor the pelvis with IV contrast. There is mild subsegmental atelectasis at the lung bases. Heart size is normal. No pericardial effusi on. No pleural effusion. Liver spleen appear intact. There are clips from cholecystectomy. No pancreatic mass. The stomach is intact. There is no adrenal mass. Kidneys have normal size and contour. No hydronephrosis. There is a 4 mm ca lculus lower pole right kidney. No retroperitoneal adenopathy. No inguinal hernia. Latter distends sm oothly. There is IUD in the uterine fundus. Uterus is anteverted. No pelvic mass. No free fluid in th e pelvis. There is mildly thickened appendix which measures up to 9 mm. There is likely some calcification at the tip of the appendix. No surrounding inflammation seen. There is some mild retained fecal material in the large bowel. There is bilateral posterior implants with neural stimulators in the thoracic spine. There is no mesenteric edema. No ascites or free air. No sign of a bowel obstruction. The lumbar vert ebrae have normal alignment. Posterior elements are intact. No compression fracture. Bony pelvis is i ntact. The hip joints are intact. IMPRESSION: Mild constipation. Borderline thickened appendix. Appendicolith. Nonobstructing right renal calculus.
[2022-10-27 16:15] VITALS: BP 103/67; PULSE 85; TEMP 98.2
== END 2022-10-27 16:20 | disposition home or self-care (01) ==
LOC: EC 11:54
DX: R22.43 Localized swelling, mass and lump, lower limb, bilateral (principal); G47.00 Insomnia, unspecified; K59.00 Constipation, unspecified; J45.909 Unspecified asthma, uncomplicated; G47.30 Sleep apnea, unspecified; F41.9 Anxiety disorder, unspecified; F32.A Depression, unspecified; Z91.048 Other nonmedicinal substance allergy status; Z91.018 Allergy to other foods
CPT/HCPCS: 36415; 93005; 83880; 80053; 84443; 84484; 85025; 86140; 74177; 99285; 96374; 96375 ×2; J1200; J2930; Q9967